=== PATIENT | female | born 1950 | race Caucasian/White ===

== ENCOUNTER 2020-01-16 13:00 | Emergency (ER) | payer OTHER | END 2020-01-16 13:40 | disposition home or self-care (01) | LOC: JVIRT 13:00 | DX: U07.1 COVID-19 (principal) | CPT/HCPCS: C9803; Q3014-GT; U0003 ==

== ENCOUNTER 2024-06-28 09:51 | Emergency (ER) | payer OTHER ==
[2024-06-28 10:24] VITALS: BP 148/76; PULSE 66; RESP 18; TEMP 99.2; BMI 39.9
[2024-06-28] MEDS ORDERED: ACETAMINOPHEN 500 MG TABLET (FP) ONE (10:43)
[2024-06-28] MEDS ORDERED: LIDOCAINE 5% TOPICAL PATCH ONE (10:44)
[2024-06-28] MEDS: ACETAMINOPHEN 500 MG TABLET (FP) PO ONE (10:50)
[2024-06-28] MEDS: LIDOCAINE 5% TOPICAL PATCH TP ONE (10:55)
[2024-06-28] MEDS ORDERED: LIDOCAINE PATCH REMOVAL MC SCH (22:00)
== END 2024-06-28 11:50 | disposition home or self-care (01) ==
LOC: FER 09:51
DX: M25.561 Pain in right knee (principal); X50.1XXA Overexertion from prolonged static or awkward postures, initial encounter; Y93.B9 Activity, other involving muscle strengthening exercises
CPT/HCPCS: 73562-TC-RT-FY; 99283-25